=== PATIENT | female | born 1960 | race Caucasian/White ===

== ENCOUNTER 2022-03-14 18:30 | Emergency (ER) | payer OTHER ==
[~2022-03-14] VITALS: Ht 157.5 cm; Wt 90.7 kg
[2022-03-14 20:46] VITALS: BP 126/91
== END 2022-03-14 20:30 | disposition home or self-care (01) ==
LOC: ER 18:40
DX: M79.621 Pain in right upper arm (principal); I82.611 Acute embolism and thrombosis of superficial veins of right upper extremity; J44.9 Chronic obstructive pulmonary disease, unspecified; M79.7 Fibromyalgia; Z20.822 Contact with and (suspected) exposure to COVID-19
CPT/HCPCS: 93971; 99283; U0002